=== PATIENT | female | born 1995 | race Caucasian/White ===

== ENCOUNTER 2017-01-08 11:40 | Day surgery (SDC) | payer OTHER ==
[~2017-01-08] VITALS: Ht 175.3 cm; Wt 99.8 kg
[~2017-01-08 11:40] MED LIST: CITA10TA14 PO; HYDR-3825 PO; LISD20CA4 PO; METF500T4 PO; METH750T3 PO; NORG1TAB80 PO; OMEP20CA11 PO; PRED50TA PO; Sodium Chloride LOK Flush 10 mL Syringe IV PRN; fentaNYL-PF 50 mCg/mL 2 mL Inj IVPUSH PRN
[2017-01-08 12:02] VITALS: BP 172/102; PULSE 97; RESP 16; O2SAT 95
[2017-01-08 12:25] VITALS: BP 149/92; PULSE 72; RESP 16; O2SAT 98
[2017-01-08 13:35] VITALS: BP 165/70; PULSE 73; RESP 16; O2SAT 97
[2017-01-08] MEDS ORDERED: 0.9% Sodium Chloride 1,000 ML IV ONE (13:53)
--- NOTE | 2017-01-08 14:27 | ENDO ---
[address] [address] ENDOSCOPY PROCEDURE PATIENT: RASHEL SANCHEZ : 1995 MR#: [id number] ADMIT: 01/08/2017 JOB ID: [id number] DATE: 01/08/2017 TYPE OF OPERATION: Esophagogastroduodenoscopy with biopsy. PREOPERATIVE DIAGNOSIS(ES): Gastroesophageal reflux disease. POSTOPERATIVE DIAGNOSIS(ES): Small hiatal hernia. ANESTHESIA: 1. Fentanyl 150 mcg. 2. Versed 7 mg IV administered. COMPLICATIONS: None. BLOOD LOSS: Minimal. DESCRIPTION OF PROCEDURE: After the risks and benefits were explained to the patient, informed consent was obtained. After anesthesia administered, upper endoscope was then inserted into the mouth, intubated to the esophagus, stomach, second portion of duodenum. Mucosa carefully examined. After procedure was done, the scope withdrawn and procedure terminated. FINDINGS: Upon inspection of the esophagus, the esophagus was normal without masses, ulcers or lesions. Z-line located at 35 cm from the incisors. Upon entering the stomach, there were no masses, ulcers, or lesions that were seen. Retroflexion showed small hiatal hernia. Duodenal bulb, first and second portion of duodenum normal. Biopsy taken at the antrum, body and distal esophagus. IMPRESSIONS: Small hiatal hernia. RECOMMENDATIONS: 1. Await pathology results. 2. Followup with Natalie [place] in GI clinic.
--- NOTE | 2017-01-11 14:42 | PATH ---
SURGICAL PATHOLOGY Attending Physician:Daryl Joseph MD CASE STATUS: Signed Out PATIENT NAME: RASHEL SANCHEZ PID: [id number] : 1995 DATE COLLECTED:01/08/2017 21:38 SPECIMEN: 1: Stomach, Antrum, Biopsy 2: Gastric, Biopsy 3: Esophagus, Biopsy CLINICAL HISTORY: GERD 1). ANTRUM BIOPSY 2). GASTRIC BODY BIOPSY 3). DISTAL ESOPHAGUS BIOPSY FINAL DIAGNOSIS: 1. Stomach, Antrum, Biopsy: Antral mucosa with no diagnostic abnormality. Negative for Helicobacter organisms. Negative for intestinal metaplasia. Negative for dysplasia and malignancy. 2. Stomach, Body, Biopsy: Body-type mucosa with no diagnostic abnormality. Negative for Helicobacter organisms. Negative for intestinal metaplasia. Negative for dysplasia and malignancy. 3. Distal Esophagus, Biopsy: Squamous and columnar mucosa with no diagnostic abnormality. Negative for intestinal metaplasia. Negative for dysplasia and malignancy. ICD10: R10.9 GROSS DESCRIPTION: Received are three formalin-filled containers, each labeled with the patient' s name. 1. Received in formalin, labeled with the patient' s name and "antrum BX", are two fragments of vigil, soft tissue ranging in size from 0.1 x 0.1 x 0.1 cm to 0.3 x 0.2 x 0.1 cm. All fragments are totally submitted in cassette 1A. 2. Received in formalin, labeled with the patient' s name and "gastric body biopsy", are two fragments of vigil, soft tissue ranging in size from less than 0.1 cm by less than 0.1 cm by less than 0.1 cm to 0.4 x 0.2 x 0.1 cm. All fragments are totally submitted in cassette 2A. 3. Received in formalin, labeled with the patient' s name and "distal esophagus BX", are two fragments of vigil, soft tissue ranging in size from 0.1 x 0.1 x 0.1 cm to 0.2 x 0.1 x 0.1 cm. All fragments are totally submitted in cassette 3A. ([id number]) ICD-9 CODES: CPT CODES: 1: 62262 2: 46301 3: 79970 Electronically Signed Out Shawna Soriano MD [facility] Pathology [facility] [address] [place] [address], [place] [address] Technical component performed at [facility], [address], [place], [address]
== END 2017-01-08 23:59 | disposition home or self-care (01) ==
LOC: END 11:40
PROVIDERS: ATTEND Internal Medicine Gastroenterology
DX: K21.9 Gastro-esophageal reflux disease without esophagitis (principal); K44.9 Diaphragmatic hernia without obstruction or gangrene; E66.01 Morbid (severe) obesity due to excess calories; Z68.42 Body mass index [BMI] 45.0-49.9, adult; Z79.84 Long term (current) use of oral hypoglycemic drugs
CPT/HCPCS: 43239; 88305; G0500; J7030

== ENCOUNTER → 2017-05-03 | Day surgery (SDC) | payer OTHER ==
[2017-05-03] VITALS (11 sets, daily range): BP systolic 115–139; BP diastolic 47–71; PULSE 76–109; RESP 17–28; O2SAT 94–100
[~2017-05-03] VITALS: Ht 175.3 cm; Wt 137.0 kg
[~2017-05-03] MED LIST changes: +Bismuth Subgallate Powder 25 Gm TOPICAL ONE; +Bupivacaine-MPF 0.5% W/EPI 30 mL Inj INJ ONE; +Dexamethasone 4 mg/mL Inj IVPUSH PRN; +Dexamethasone Inj 20 MG in 0.9% Sodium Chloride-Pha MIX 50 ML IV ONE; +EPHEDrine Sulfate 50 mg/mL Inj IVPUSH PRN; +EPHEDrine/NS 5 mg/mL 5 mL Syringe ONE; -HYDR-3825 PO; +HYDR25TA4 PO; +HYDROcodone-APAP 7.5-325 mg/15 mL 15 mL Solution ONE; +HYDROmorphone 1 mg/mL Inj IVPUSH PRN; +HYDROmorphone 1 mg/mL Inj ONE; +Lactated Ringer's 1,000 ML IV ONE; +Lactated Ringer's 1,000 ML IV SCH; +Lactated Ringer's 500 ML IV PRN; +Lidocaine 1%-Epi 1:100,000 20 mL Inj INJ ONE; -METF500T4 PO; -METH750T3 PO; +MetoCLOpramide 5 mg/mL 2 mL Inj IVPUSH PRN; +Ondansetron 2 mg/mL 2 mL Inj IVPUSH PRN; +Ondansetron 2 mg/mL 2 mL Inj ONE; -PRED50TA PO; +Phenylephrine 10,000 mCg/mL Inj IVPUSH PRN; +Propofol 10,000 mCg/mL 20 mL Inj ONE; -Sodium Chloride LOK Flush 10 mL Syringe IV PRN; +Sodium Citrate-Citric Acid 15 mL Solution ONE; +Succinylcholine Chloride 20 mg/mL 5 mL Inj ONE; +fentaNYL-PF 50 mCg/mL 2 mL Inj ONE
--- NOTE | 2017-05-03 09:16 | OP ---
[address] [address] OPERATIVE REPORT PATIENT: RASHEL SANCHEZ : 1995 MR#: [id number] ADMIT: 05/03/2017 JOB ID: [id number] DATE OF SURGERY: 05/03/2017 SURGEON: Jose Leung MD SERVICE: [facility] PREOPERATIVE DIAGNOSIS(ES): Chronic tonsillitis. POSTOPERATIVE DIAGNOSIS(ES): Chronic tonsillitis. INDICATIONS: Chronic tonsillitis. OPERATION PERFORMED: Tonsillectomy. OPERATIVE FINDINGS: Four plus cryptic tonsils with tonsil stones. OPERATIVE PROCEDURE: The patient was supine on the operating table. General orotracheal anesthesia was used. Tongue and soft palate retracted. Small adenoids noted. Soft palate released. Bilateral extracapsular cautery technique tonsillectomy performed. Hemostasis with Bovie cautery over bismuth paste, 2-0 chromic sutures were used for additional hemostasis. Procedure terminated. Hemostasis controlled. BLOOD LOSS: Minimal. Patient turned over to anesthesia for emergence from anesthetics without known complications.
--- NOTE | 2017-05-03 10:29 | PCM.HPANE ---
Patient Data Surgeon Admitting Provider: Attending Provider:Jose Leung MD Primary Care Physician:Shawna Calloway MD Other Provider:Beverley Coreyingham Anesthesia Reason for Visit Tonsillar Hypertrophy, Chronic Tonsillitis Ht/WT & BMI Height (Feet): 5 Height (Inches): 9.00 Weight (Kilograms): 136.980 Body Mass Index 44.00 Allergies Coded Allergies: No Known Allergies (Unverified , 04/26/17) Past Anesthesia History Anesthesia History: Positive for:: Abnormal Airway (tonsillar hypertrophy current admission problem), Denies:: Anesthesia Reactions, Difficult Intubation, Fam Anesthesia Reaction , Fam Malignant Hypertherm, Malignant Hyperthermia Diabetes History Hx Diabetes?: No MRSA MRSA: No Medications Hypertension Medication: Yes Home Meds Incl Beta Sade: No Reported Medications Hydrochlorothiazide 25 Mg Laliiv01 Mg PO DAILY 30 Days Ref 0 04/26/17 Lisdexamfetamine Dimesylate (Vyvanse)20 Mg [id number] Mg PO DAILY 01/07/17 Omeprazole 20 Mg Capsule.dr20 Mg PO BID Ref 0 01/07/17 Norgestrel-Ethinyl Estradiol (Elinest)1 Each Tablet1 Each PO DAILY 01/07/17 Citalopram Hydrobromide (Celexa)10 Mg [id number] Mg PO DAILY Ref 0 01/07/17 History History of ENT Problems?: Yes HEENT History: Positive for:: Abnormal Airway (tonsillar hypertrophy current admission problem) Denies:: Cataracts Difficult Intubation Dysphagia Glaucoma Hearing Problem Sinus Problem TMJ Denture Type: None Teeth Condition: Within Normal Limits Hx of Heart Problems?: No Cardiovascular History: Positive for:: Hypertension Denies:: AICD Abdominal Aortic Aneurism Atrial Fibrillation Cardiac Surgery Chest Pain Edema Heart Murmur Irregular Heartbeat Pacemaker Peripheral Vascular Rheumatic Fever Hx of Respiratory Problem?: Yes Respiratory History: Positive for:: Asthma Denies:: COPD Emphysema Oxygen Administration Pneumonia Tuberculosis Use of C-PAP Machine Use of Inhalers / NEBS Hx Neurologic Problems?: No Neurological History: Denies:: CVA Headaches Multiple Sclerosis Parkinson's Disease Seizures Hx of GI Problems?: Yes Hx of Problems?: No Genitourinary History: Denies:: Kidney Stones Urinary Tract Infection Female Hx: Denies:: Currently Problems with Breasts? Skin History: Denies:: History Skin Disorders? Pressure Ulcers Hx Musculoskeletal Problems?: No Musculoskeletal History: Denies:: Degenerative Joint Fibromyalgia Joint Replacement Musculoskeletal Trauma Myasthenia Gravis Osteoarthritis Systemic Lupus Psycho Social History: Positive for:: Anxiety Hx Depression Hx Surgeries?: No Hx Any Other Health Problems?: Yes Other History: Denies:: Cancer Thyroid Disease History Blood Transfusions: Positive for:: Accept Blood Products? Denies:: Blood Transfusions Hx Diabetes: No Hx Alcohol Use: Yes Smoking Status: Heavy Tobacco Smoker Stop/Bang S-Snoring: Do You Snore Loudly: Yes T-Tired: feel tired, fatigued: No O-Obsered: Observed not breath: No P-Blood Pressure: treated: Yes B- Body Mass Index > 35 kg/m2: Yes A- Age over 50: No N- Neck Large Circumference: Yes G- Gender Male: No LALA Total Score: 4 Risk Assessment Category Category 1A: Patient has history of documented sleep apnea, and HAS NOT received any narcotic, sedative or anesthesia administration during this stay. Category 1B: Patient has history of documented sleep apnea, and HAS received any narcotic , sedative or anesthesia administration during this stay Category 2: Patient has SUSPECTED Obstructive Sleep Apnea, and HAS received any narcotic , sedative or anesthesia administration during this stay. Category 3: Patient has SUSPECTED Obstructive Sleep Apnea and HAS NOT received narcotic, sedative or anesthesia administration during this stay. Category 4: Outpatient in Procedural Areas with known sleep apnea or who screen positive for High Risk via the STOP/BANG questionnaire. Exam Exam Vital Signs Vital Signs Date Time Temp Pulse Resp B/P Pulse Ox O2 Delivery O2 Flow Rate FiO2 05/03/17 06:34 36.3 79 17 132/66 100 Room Air General Appearance: Alert, Oriented X3, Cooperative HEENT/AIRWAY: MP 2 Lungs: Normal Air Movement Heart: Exam Unremarkable Meds/Labs/Diagnostics Admission Meds Current Medications Lactated Ringer's (Lr) 1,000 ml @ ud STK-MED ONCE IV Last administered on 05/03t 06:43; Start 05/03/17 at 06:43; Stop 05/03/17 at 06:44; Status DC Plan Impression Patient chart reviewed, patient interviewed and anesthestic plan with risks, benefits, and alternatives discussed, and informed consent obtained. NPO per Anesth. Guidelines: Yes ASA Physical Status: ASA3 Severe Disease Anesthetic Plan: GA Bene/Risks/Altern/Consents: Yes HP Complete Prior to Induction: Yes Actis,Herson M MD May 03, 2017 07:09
--- NOTE | 2017-05-03 10:32 | PCM.ANEP1 ---
Post Anesthesia PACU Phase 1 Assessment Vital Signs Vital Signs Date Time Temp Pulse Resp B/P Pulse Ox O2 Delivery O2 Flow Rate FiO2 05/03/17 10:23 76 18 128/56 97 Room Air 05/03/17 09:08 85 18 123/67 96 Room Air 05/03/17 09:00 97 21 115/59 95 Room Air 05/03/17 08:56 36.4 85 17 121/58 94 Room Air 05/03/17 08:50 99 17 131/61 94 Room Air 05/03/17 08:40 36.6 100 21 129/71 95 Room Air 05/03/17 08:35 106 21 139/47 95 Room Air 05/03/17 08:30 108 28 135/54 94 Room Air 05/03/17 08:25 104 23 132/57 100 Simple Mask 8 05/03/17 08:24 36.2 109 25 133/50 100 Simple Mask 8 05/03/17 06:34 36.3 79 17 132/66 100 Room Air Anesthetic Administered: GA Level of Alertness: Awake, talking DAVIS's with Equal Strength: Yes Pain: Yes Nausea or Vomiting: No CV Function & Hydration Stable: Yes Airway Device: none Oxygen Delivery: Room Air Lungs: Normal Air Movement PACU Phase 2 Assessment Complications: No Follow up Care: No Patient Instructions Provided: Yes Herson Carolina MD May 03, 2017 10:32
== END | disposition home or self-care (01) ==
LOC: SAS 05:46
PROVIDERS: ATTEND Otolaryngology Facial Plastic Surgery
DX: J35.01 Chronic tonsillitis (principal); I10 Essential (primary) hypertension; J45.909 Unspecified asthma, uncomplicated; K21.9 Gastro-esophageal reflux disease without esophagitis; F41.9 Anxiety disorder, unspecified; F32.9 Major depressive disorder, single episode, unspecified; F17.210 Nicotine dependence, cigarettes, uncomplicated; F12.90 Cannabis use, unspecified, uncomplicated
CPT/HCPCS: 42826; J0330; J1100; J1170; J1885; J2175; J2405; J2704; J3010; J7120